=== PATIENT | female | born 1945 | race American Indian/Alaskan Native ===

== ENCOUNTER 2021-08-14 18:21 | Emergency (ER) | payer MEDICARE ==
[2021-08-14 20:23] VITALS: BP 155/62
--- NOTE | 2021-08-15 04:17 | Ultrasound Report ---
ULTRASOUND BREAST RIGHT LIMITED, 08/15/2021 CLINICAL INFORMATION / INDICATION: Right breast lump/tenderness laterally. Family history of breast c ancer and personal history of METER REPAIRER cancer. TECHNIQUE: Targeted ultrasound evaluation was performed of the area of interest. COMPARISON: None. FINDINGS: There is a 3.6 cm irregular heterogeneous solid mass at the 10:00 position 8 cm from the nipple in th e area of clinical concern. The mass contains multiple calcifications and demonstrates increased vasc ularity centrally and peripherally. There is an adjacent similar-appearing 1.5 cm mass at the 9:30 po sition 8 cm from the nipple. There is also intraductal nodularity at the 10:00 position 3 cm from the nipple, measuring approximately 5 mm. No internal vascularity is seen on Doppler exam. There is gene ralized ductal ectasia in this region extending laterally. There is a 1.8 cm irregular hypoechoic solid nodule at the 11:00 position 9 cm from the nipple. There are 3 adjacent abnormal-appearing lymph nodes in the right axilla, the largest of which measures 1.3 cm short axis. IMPRESSION: Findings characteristic of multifocal malignancy in the right lateral breast in the area of clinical concern. Abnormal right axillary lymph nodes are worrisome for metastatic disease. Follow up recommendation: Biopsy. Bilateral diagnostic mammography is recommended prior to biopsy. BI-RADS Category 5: HIGHLY SUGGESTIVE OF MALIGNANCY. A normal or "negative" report should not preclude biopsy or follow-up of a clinically suspicious find ing. Signer Name: Douglas Hu MD Signed: 08/15/2021 4:13 AM Workstation Name: [id number]
--- NOTE | 2021-08-15 05:02 | Emergency Department Report ---
ED General Adult HPI - General Chief complaint: Skin Rash Stated complaint: LUMP IN RT BREAST Time Seen by Provider: 08/15/21 03:02 Source: patient Mode of arrival: Ambulatory Limitations: No Limitations - History of Present Illness Initial comments: 75-year-old female with a past medical history of vaginal cancer 3 years ago presents emerged department complaining of a spontaneous mass to the right breast there for 1 day tender in nature of unknown etiology. Mass associated with no fever, chills, sweats. No weight loss no nipple discharge no abdominal pain no nausea, no vomiting no trauma. She attempted to follow-up with her primary care provider on this matter they advised her to go get checked out with a biopsy however the biopsy was unable to be obtained until October so she decided come to emergency department to see for evaluation treatment options. States she has had no change in her medications. No no pelvic pain no vaginal bleeding no hematuria no dysuria -: Gradual Consistency: constant Improves with: none Worsens with: none Associated Symptoms: denies other symptoms Treatments Prior to Arrival: none - Related Data Home Medications Medication Instructions Recorded Confirmed Last Taken Albuterol Mdi (or & Nicu Only) 2 puff IH QID PRN 02/02/13 02/02/13 02/08/13 06:30 [Proair] 2 PUFFS Amlodipine Besylate 10 mg PO QDAY 02/02/13 02/02/13 Unknown Hydrocodone Bit/Acetaminophen 10 - 500 mg PO Q8HR PRN 02/02/13 02/02/13 02/07/13 [Hydrocodon-Acetaminophn 10-500] 10-500MG Lisinopril/Hydrochlorothiazide 20 - 25 mg PO QDAY 02/02/13 02/02/13 02/07/13 13:00 [Lisinopril-Hctz 20-25 mg Tab] 20-25 MG Metformin HCl 500 mg PO BID 02/02/13 02/02/13 02/07/13 500 MG Methimazole 10 mg PO QDAY 02/02/13 02/02/13 02/07/13 10 MG Pregabalin [Lyrica] 75 mg PO QDAY 02/02/13 02/02/13 02/07/13 75 MG Sucralfate 1 gm PO TIDAC 02/02/13 02/02/13 02/07/13 1 GM glipiZIDE [Glipizide] 5 mg PO QDAY 02/02/13 02/02/13 02/07/13 5 MG Previous Rx's Medication Instructions Recorded Last Taken Type Acetaminophen/Codeine [Tylenol #3] 1 tab PO Q6H PRN #20 tab 11/13/13 Unknown Rx Naproxen Sodium (Nf) [Anaprox DS] 550 mg PO BID PRN #14 tablet 11/13/13 Unknown Rx Allergies Allergy/AdvReac Type Severity Reaction Status Date / Time No Known Allergies Allergy Unverified 02/02/13 16:26 ED Review of Systems ROS: Stated complaint: LUMP IN RT BREAST Other details as noted in HPI Comment: All other systems reviewed and negative ED Past Medical Hx - Past Medical History Hx Hypertension: Yes (FOR [address] OZZIE PRATT- PCP) Hx Diabetes: Yes (FOR 5 YRS) Hx GERD: Yes (FOR 2 MTHS) Hx Arthritis: Yes Hx Asthma: Yes (FOR 2 YRS) Hx COPD: Yes Additional medical history: thyroid - Surgical History Hx Appendectomy: Yes (IN 1996) Additional Surgical History: part of colon removed, right knee replacement - Social History Smoking Status: Light Tobacco Smoker Substance Use Type: None - Medications Home Medications: Home Medications Medication Instructions Recorded Confirmed Last Taken Type Albuterol Mdi (or & Nicu Only) 2 puff IH QID PRN 02/02/13 02/02/13 02/08/13 06:30 History [Proair] 2 PUFFS Amlodipine Besylate 10 mg PO QDAY 02/02/13 02/02/13 Unknown History Hydrocodone Bit/Acetaminophen 10 - 500 mg PO Q8HR PRN 02/02/13 02/02/13 02/07/13 History [Hydrocodon-Acetaminophn 10-500] 10-500MG Lisinopril/Hydrochlorothiazide 20 - 25 mg PO QDAY 02/02/13 02/02/13 02/07/13 13:00 History [Lisinopril-Hctz 20-25 mg Tab] 20-25 MG Metformin HCl 500 mg PO BID 02/02/13 02/02/13 02/07/13 History 500 MG Methimazole 10 mg PO QDAY 02/02/13 02/02/13 02/07/13 History 10 MG Pregabalin [Lyrica] 75 mg PO QDAY 02/02/13 02/02/13 02/07/13 History 75 MG Sucralfate 1 gm PO TIDAC 02/02/13 02/02/13 02/07/13 History 1 GM glipiZIDE [Glipizide] 5 mg PO QDAY 02/02/13 02/02/13 02/07/13 History 5 MG Acetaminophen/Codeine [Tylenol #3] 1 tab PO Q6H PRN #20 tab 11/13/13 Unknown Rx Naproxen Sodium (Nf) [Anaprox DS] 550 mg PO BID PRN #14 tablet 11/13/13 Unknown Rx ED Physical Exam - General Limitations: No Limitations ED Course Vital Signs 08/14/21 20:22 Temperature 98.3 F Pulse Rate 74 Respiratory 20 Rate Blood Pressure 155/62 O2 Sat by Pulse 96 Oximetry ED Medical Decision Making - Radiology Data Radiology results: report reviewed [facility] [address] [place] [address] Ultrasound Report Signed Patient: ANTOINE HEWITT MR#: [id number] : 1945 Acct:[id number] Age/Sex: 75 / F ADM Date: 08/14/21 Loc: ED Attending Dr: Ordering Physician: COCO CORNELIUS Date of Service: 08/15/21 Procedure(s): US breast RT limited Accession Number(s): [id number] cc: COCO CORNELIUS ULTRASOUND BREAST RIGHT LIMITED, 08/15/2021 CLINICAL INFORMATION / INDICATION: Right breast lump/tenderness laterally. 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 TECHNIQUE: Targeted ultrasound evaluation was performed of the area of interest. COMPARISON: None. FINDINGS: There is a 3.6 cm irregular heterogeneous solid mass at the 10:00 position 8 cm from the nipple in the area of clinical concern. The mass contains multiple calcifications and demonstrates increased vascularity centrally and peripherally. There is an adjacent similar-appearing 1.5 cm mass at the 9:30 position 8 cm from the nipple. There is also intraductal nodularity at the 10:00 position 3 cm from the nipple, measuring approximately 5 mm. No internal vascularity is seen on Doppler exam. There is generalized ductal ectasia in this region extending laterally. There is a 1.8 cm irregular hypoechoic solid nodule at the 11:00 position 9 cm from the nipple. There are 3 adjacent abnormal-appearing lymph nodes in the right axilla, the largest of which measures 1.3 cm short axis. IMPRESSION: Findings characteristic of multifocal malignancy in the right lateral breast in the area of clinical concern. Abnormal right axillary lymph nodes are worrisome for metastatic disease. Follow up recommendation: Biopsy. Bilateral diagnostic mammography is recommended prior to biopsy. BI-RADS Category 5: HIGHLY SUGGESTIVE OF MALIGNANCY. A normal or "negative" report should not preclude biopsy or follow-up of a clinically suspicious finding. Signer Name: Douglas Hu MD Signed: 08/15/2021 4:13 AM Workstation Name: [id number] Transcribed By: RT Dictated By: Douglas Hu MD Electronically Authenticated By: Douglas Hu MD Signed Date/Time: 08/15/21412 DD/ 4 TD/TT: Critical care attestation.: If time is entered above; I have spent that time in minutes in the direct care of this critically ill patient, excluding procedure time. ED Disposition Clinical Impression: Mass of right breast Disposition: 01 HOME / SELF CARE / HOMELESS Is pt being admited?: No Does the pt Need Aspirin: No Condition: Stable Instructions: Breast Cancer, Female Additional Instructions: Ultrasound shows mass in the breast highly suggestive of a malignancy please be sure to follow-up obtain the stereotactic biopsy as we discussed previously alert you [facility] cancer physician so they can help you follow along will with the findings on the ultrasound that were discovered today to evaluate a copy for your records Referrals: MEJIA PALAFOX MD [Primary Care Provider] - 3-5 Days [facility] [Other] - 3-5 Days Sales Engagement Manager, [facility] [Other] - 3-5 Days
== END 2021-08-15 06:23 | disposition home or self-care (01) ==
LOC: ED 18:21
DX: N63.0 Unspecified lump in unspecified breast (principal); I10 Essential (primary) hypertension; E11.9 Type 2 diabetes mellitus without complications; M19.90 Unspecified osteoarthritis, unspecified site; J44.9 Chronic obstructive pulmonary disease, unspecified; F17.200 Nicotine dependence, unspecified, uncomplicated; Z90.49 Acquired absence of other specified parts of digestive tract; Z79.84 Long term (current) use of oral hypoglycemic drugs; Z79.899 Other long term (current) drug therapy
CPT/HCPCS: 99283